=== PATIENT | female | born 1985 | race African-American/Black ===

== ENCOUNTER 2019-04-21 01:04 | Emergency (ER) | payer OTHER ==
[~2019-04-21] VITALS: Ht 165.1 cm; Wt 136.1 kg
[~2019-04-21 01:04] MED LIST: B-COMPLEX 100400 MC1; BIRTH CONTROL; CLARITIN10 MG PO; EC-NAPROSYN500 M1 PO; FLEXERIL PO; FLONASE 0.05%50 MCG NASAL; LEVSIN0.125 MG PO; NASONEX17 GM; PRILOSEC 20 MG20 MG PO; TRAMADOL 50 MG50 MG PO; ZANAFLEX4 MG PO; ZOFRAN 4 MG ORAL4 MG PO; ZOFRAN ODT8 MG PO; ZOFRAN4 MG PO; ZPAK PO
[2019-04-21 02:09] LABS: ABSOLUTE NEUTROPHILS 2.9 thou/uL (1.4-8.2); BASOPHILS 0.3 % (0.0-2.0); EOSINOPHILS 0.1 % (0.0-3.0); HEMOGLOBIN 12.4 gm/dL (12.0-15.0); LYMPHOCYTES 10.1 % (24.0-44.0); MCH 25.8 pg (26.0-34.0); MCHC 32.6 g/dL (28.0-37.0); MONOCYTES 11.8 % (1.0-8.0); PLATELET COUNT 300 thou/uL (150-400); POLYS 77.7 % (36.0-66.0); RBC 4.81 mil/uL (4.20-5.00); RDW 13.5 % (10.5-14.5); WBC 3.8 thou/uL (4.0-11.0)
[2019-04-21 02:23] LABS: ANION GAP 12 mmol/L (7-16); BUN 8 mg/dL (7-18); CALCIUM 8.8 mg/dL (8.5-10.1); CHLORIDE 101 mmol/L (98-107); CO2 22 mmol/L (21-32); CREATININE 0.9 mg/dL (0.6-1.0); GLUCOSE 88 mg/dL (74-106); POTASSIUM 3.6 mmol/L (3.5-5.1); SODIUM 135 mmol/L (136-145)
[2019-04-21 02:28] LABS: ALBUMIN 3.5 g/dL (3.4-5.0); DIRECT BILIRUBIN < 0.1 mg/dL (<0.1-0.3); LIPASE 142 U/L (73-393); SGOT 15 U/L (15-37); SGPT 19 U/L (30-65); TOTAL BILIRUBIN 0.3 mg/dL (<0.1-1.0)
[2019-04-21 03:01] LABS: URINE BLOOD 3+ (Negative); URINE CLARITY CLEAR; URINE COLOR YELLOW; URINE GLUCOSE-RANDOM* NEGATIVE (Negative); URINE KETONES 2+ (Negative); URINE LEUKOCYTES-REFLEX NEGATIVE (Negative); URINE NITRITE-REFLEX NEGATIVE (Negative); URINE PROTEIN (DIPSTICK) 1+ (Negative); URINE SPECIFIC GRAVITY >= 1.030 (1.005-1.035); URINE UROBILINOGEN 0.2 E.U./dl (0.2-1.0)
[2019-04-21 03:05] LABS: ICTOTEST (BILI CONFIRMATORY) Negative (Negative); URINE BILIRUBIN NEGATIVE (Negative)
[2019-04-21 03:57] LABS: BACTERIA-REFLEX 1-9 Few /HPF (None Seen); CASTS None Seen /LPF (None Seen); MUCUS None Seen strn/LPF (None Seen); SQUAMOUS None Seen /LPF (0-3); URINE RBC >20 Many /HPF (0-2); URINE WBC-REFLEX None Seen /HPF (0-5)
[2019-04-21 03:58] LABS: AMORPHOUS URATES Many /LPF (None Seen)
[2019-04-21 04:22] VITALS: BP 120/66
[2019-04-21] MEDS ORDERED: ZOFRAN ODT4 MG PO (04:30)
[2019-04-21] MEDS ORDERED: BENTYL 20 MG TA20 M1 PO (04:30)
== END 2019-04-21 04:45 | disposition home or self-care (01) ==
LOC: ER 01:04
PROVIDERS: Emergency Medicine
DX: R10.33 Periumbilical pain (principal); R19.7 Diarrhea, unspecified; R11.2 Nausea with vomiting, unspecified; R10.12 Left upper quadrant pain; K58.9 Irritable bowel syndrome, unspecified; M19.90 Unspecified osteoarthritis, unspecified site; Z88.1 Allergy status to other antibiotic agents; Z79.899 Other long term (current) drug therapy